=== PATIENT | male | born 1965 | race Caucasian/White ===

== ENCOUNTER 2018-11-05 18:25 | Emergency (ER) | payer BC ==
--- NOTE | 2018-11-05 18:48 | EDM.PDOC ---
ED HPI GENERAL MEDICAL PROBLEM - General Stated Complaint: CHF, SHORT OF BREATH Time Seen by Provider: 11/05/18 18:40 - History of Present Illness INITIAL COMMENTS - FREE TEXT/NARRATIVE: pt with Hx of COPD and CHF, comes in ambulatory with c/o SOB, tells me he feels bloated and need to get fluids off his lungs, pt feels SOB everytime he ly flat , states he was on lasix 20 but this was stopped by his PCP about 2 weeks ago, he was doing fine until today , he started feeling SOB, he took 2 tablets of his spironolactone 25 but still feels out of breath, pt denies cough, fever, chills, or any other associated sx or concerns. - Related Data Allergies Allergy/AdvReac Type Severity Reaction Status Date / Time No Known Allergies Allergy Verified 10/28/14 21:49 Home Meds: Home Meds Lisinopril [Zestril] 20 mg PO DAILY 04/09/14 [History] Spironolactone [Aldactone] 25 mg PO DAILY 04/09/14 [History] Albuterol [Ventolin HFA] 1 puff .XX ASDIRECTED 11/05/18 [History] Carvedilol 12.5 mg PO BID 11/05/18 [History] atorvaSTATin [Lipitor] 80 mg PO BEDTIME 11/05/18 [History] Social & Family History - Living Situation & Occupation Living situation: Reports: Single ED ROS GENERAL - Review of Systems Review Of Systems: See Below Constitutional: Denies: Fever, Chills, Fatigue HEENT: Reports: No Symptoms Respiratory: Reports: Shortness of Breath. Denies: Wheezing, Pleuritic Chest Pain, Cough, Hemoptysis Cardiovascular: Reports: No Symptoms. Denies: Chest Pain GI/Abdominal: Reports: No Symptoms, Distension Musculoskeletal: Reports: No Symptoms Skin: Reports: No Symptoms ED EXAM, GENERAL - Physical Exam Exam: See Below Exam Limited By: No Limitations General Appearance: Alert, Mild Distress Throat/Mouth: Normal Inspection Neck: Normal Inspection Respiratory/Chest: Rales Cardiovascular: Regular Rate, Rhythm, No Edema, No Murmur GI/Abdominal: Normal Bowel Sounds, Soft, Non-Tender, No Organomegaly, No Distention, No Abnormal Bruit, No Mass Neurological: Alert, Oriented, CN II-XII Intact Psychiatric: Normal Affect Course - Vital Signs Text/Narrative:: pt care will be handed to Dr Amin at time of shift change . labs and CXR are still pending. lasix 40 IM is being given. work-up diagnosis is dyspnea/ Chronic CHF. Departure - Departure Time of Disposition: 18:50 Disposition: DC/Tfer to Other 70 Clinical Impression: CHF (congestive heart failure) - Discharge Information Referrals: PCP,None [Primary Care Provider] -
[2018-11-05] MEDS ORDERED: Albuterol/Ipratropium 3.0-0.5 MG/3 ML Neb Soln NEB ONE (18:53)
[2018-11-05] MEDS ORDERED: Furosemide 40 MG/4 ML VIAL IM SCH (19:00)
[2018-11-05] MEDS: Furosemide 20 MG/2 ML VIAL ONE ×3 (19:55→20:23)
[2018-11-05] MEDS: Furosemide 40 MG/4 ML VIAL IM ONE ×2 (19:57→20:24)
[2018-11-05] MEDS ORDERED: Furosemide 40 MG/4 ML VIAL IVPUSH ONE (19:58)
[2018-11-05 20:21] VITALS: BP 174/104
--- NOTE | 2018-11-06 07:43 | ER ---
DATE SEEN: 11/05/2018 ADDENDUM: REASON FOR VISIT: Shortness of breath. This is a 53-year-old who was seen by Dr. Prajapati and was put on Lasix for CHF exacerbation. He feels much better already, and I was asked to see him for discharge. He complains of no chest pain. PAST MEDICAL HISTORY: Hypertension, COPD, tobacco abuse, CAD, CHF. PHYSICAL EXAMINATION: GENERAL: He is not in distress. VITAL SIGNS: His blood pressure has come down to 150s, pulse 115, temperature 97.9, and oxygenation 98%. ENT: Normal. NECK: No JVD noted. EXTREMITIES: Trace edema. CARDIOVASCULAR: Normal except tachycardia. RESPIRATORY SYSTEM: Rales in the lower bases. LABORATORY DATA: Labs revealed a white cell count of 12.8, proBNP of 7000, but normal troponin. Chest x-ray showed some mild CHF. IMPRESSION: Congestive heart failure exacerbation. PLAN: The patient was given 60 mg of Lasix total and some DuoNeb. He felt much better. He was discharged home to resume his medications, including the Lasix and Aldactone. He was advised to return to the ER with any worsening symptoms. /[id number] NICO/JAY
--- NOTE | 2018-11-06 10:35 | CR ---
INDICATION: Short of breath. CHEST: An AP portable upright view of the chest was obtained 11/05/18 and compared with 04/09/14 and 10/28/14. The heart is enlarged. The aorta is somewhat tortuous with calcifications suggested in the arch but not well seen. Upper lung field pulmonary vasculature is prominent, raising question of CHF. Interstitial markings are heavy, suggesting interstitial lung edema, although fibrosis could also be present. Also, infection of an interstitial type could also be present. Findings suggesting COPD are also seen. IMPRESSION: 1. ASHD, cardiomegaly, CHF with interstitial lung edema. 2. Probable COPD. 3. Difficult to exclude minimal patchy alveolar edema versus superimposed minimal patchy pneumonia. MTDD
== END 2018-11-05 20:10 | disposition home or self-care (01) ==
LOC: FB.ED 18:25
DX: I11.0 Hypertensive heart disease with heart failure (principal); I50.9 Heart failure, unspecified
CPT/HCPCS: 36415; 71045; 80053; 83880; 84484; 85025; 93005; 94640; 96372; 96374; 99285; J1940; J7620-GY

== ENCOUNTER 2019-11-30 13:00 | Emergency (ER) | payer BC, OTHER ==
[2019-11-30] MEDS ORDERED: Furosemide 40 MG/4 ML VIAL IM ONE (13:16)
--- NOTE | 2019-11-30 13:36 | EDM.PDOC ---
ED HPI GENERAL MEDICAL PROBLEM - General Chief Complaint: Cardiovascular Problem Stated Complaint: sob Time Seen by Provider: 11/30/19 13:05 Source of Information: Reports: Patient History Limitations: Reports: No Limitations - History of Present Illness INITIAL COMMENTS - FREE TEXT/NARRATIVE: Patient presented to the ED because of dyspnea for 1 week. There is no associated cough and cold,fever or chills. He has a history of CHF and he quit taking his lasix and lisinopril for 1 month now due to monetary reasons. - Related Data Allergies Allergy/AdvReac Type Severity Reaction Status Date / Time No Known Allergies Allergy Verified 11/30/19 13:17 Home Meds: Home Meds Lisinopril [Zestril] 20 mg PO DAILY 04/09/14 [History] Spironolactone [Aldactone] 25 mg PO DAILY 04/09/14 [History] Albuterol [Ventolin HFA] 1 - 2 puff .XX ASDIRECTED PRN 11/05/18 [History] atorvaSTATin [Lipitor] 80 mg PO BEDTIME 11/05/18 [History] carvediloL [Carvedilol] 12.5 mg PO BID 11/05/18 [History] Aspirin [Ecotrin EC] 325 mg PO DAILY 11/30/19 [History] Furosemide 40 mg DAILY 11/30/19 [History] Furosemide [Lasix] 40 mg PO DAILY #30 tablet 11/30/19 [Rx] Lisinopril [Zestril] 20 mg PO DAILY #30 tablet 11/30/19 [Rx] Past Medical History Cardiovascular History: Reports: Heart Failure, Hypertension Respiratory History: Reports: COPD Social & Family History - Family History Family Medical History: Noncontributory - Caffeine Use Caffeine Use: Reports: Coffee - Living Situation & Occupation Living situation: Reports: Single ED ROS GENERAL - Review of Systems Review Of Systems: See Below Constitutional: Reports: No Symptoms HEENT: Reports: No Symptoms Respiratory: Reports: Shortness of Breath Cardiovascular: Reports: No Symptoms, Edema, Orthopnea Endocrine: Reports: No Symptoms GI/Abdominal: Reports: No Symptoms : Reports: No Symptoms Musculoskeletal: Reports: No Symptoms ED EXAM, GENERAL - Physical Exam Exam: See Below Exam Limited By: No Limitations General Appearance: Alert, No Apparent Distress Ears: Normal External Exam, Normal Canal Nose: Normal Inspection, Normal Mucosa, No Blood Throat/Mouth: Normal Inspection, Normal Lips, Normal Teeth Head: Atraumatic, Normocephalic Neck: Normal Inspection, Supple, Non-Tender Respiratory/Chest: No Respiratory Distress, Normal Breath Sounds, Crackles Cardiovascular: Normal Peripheral Pulses, Regular Rate, Rhythm, No Edema GI/Abdominal: Normal Bowel Sounds, Soft, Non-Tender, No Organomegaly Back Exam: Normal Inspection, Full Range of Motion Extremities: Normal Inspection, Pedal Edema Course - Vital Signs Text/Narrative:: Labs/EKG/CXR was discussed with patient and verbalized ful understanding CXR-pulmonary vasc congestion consistent with CHF Trop-neg ProBNP more than 4K zaroxolyn 5 mg po x1 lasix 60 mg IM x1 Last Recorded V/S: Last Vital Signs Temp 36.7 C 11/30/19 13:00 Pulse 106 H 11/30/19 13:00 Resp 22 H 11/30/19 13:00 BP 112/52 L 11/30/19 13:00 Pulse Ox 98 11/30/19 13:00 - Orders/Labs/Meds Orders: Active Orders 24 hr Category Date Time Status EKG Documentation Completion [RC] ASDIRECTED Care 11/30/19 13:16 Active Chest 2V [CR] Stat Exams 11/30/19 13:15 Taken EKG 12 Lead [EK] Routine Ther 11/30/19 13:15 Ordered Labs: Laboratory Tests 11/30/19 11/30/19 11/30/19 Range/Units 13:12 13:12 13:12 WBC 8.1 (4.5-12.0) X10-3/uL RBC 5.10 (4.30-5.75) x10(6)uL Hgb 16.1 (13.5-17.8) g/dL Hct 47.1 (30.0-51.3) % MCV 92.4 (80-96) fL MCH 31.5 (27.7-33.6) pg MCHC 34.1 (32.2-35.4) g/dL RDW 13.4 (11.5-15.5) % Plt Count 290 (125-369) X10(3)uL MPV 8.8 (7.4-10.4) fL Neut % (Auto) 69.8 (46-82) % Lymph % (Auto) 14.2 (13-37) % [place] % (Auto) 9.7 (4-12) % Eos % (Auto) 4 (1.0-5.0) % Baso % (Auto) 2 (0-2) % Neut # (Auto) 5.7 (1.6-8.3) # Lymph # (Auto) 1.1 (0.6-5.0) # [place] # (Auto) 0.8 (0.0-1.3) # Eos # (Auto) 0.3 (0.0-0.8) # Baso # (Auto) 0.2 (0.0-0.2) # Sodium 141 (135-145) mmol/L Potassium 4.6 (3.5-5.3) mmol/L Chloride 105 (100-110) mmol/L Carbon Dioxide 24 (21-32) mmol/L BUN 21 H (7-18) mg/dL Creatinine 1.2 (0.70-1.30) mg/dL Est Cr Clr Drug Dosing 75.82 mL/min Estimated GFR (MDRD) > 60 (>60) BUN/Creatinine Ratio 17.5 (9-20) Glucose 129 H (80-116) mg/dL Calcium 8.9 (8.6-10.2) mg/dL Troponin I 54.8 (4.0-60.3) pg/mL NT-Pro-B Natriuret Pep 4550 H* (<=125) pg/mL Meds: Medications Discontinued Medications Generic Name Dose Route Start Last Admin Trade Name Freq PRN Reason Stop Dose Admin Furosemide 60 mg 11/30/19 13:16 11/30/19 13:43 Lasix IM 11/30/19 13:17 60 mg NOW ONE Administration Metolazone 5 mg 11/30/19 13:37 11/30/19 13:53 Zaroxolyn PO 11/30/19 13:38 5 mg ONETIME ONE Administration Departure - Departure Time of Disposition: 14:00 Disposition: Home, Self-Care 01 Condition: Good Clinical Impression: Congestive heart failure Prescriptions: Furosemide [Lasix] 40 mg PO DAILY #30 tablet Lisinopril [Zestril] 20 mg PO DAILY #30 tablet Instructions: Furosemide injection, Heart Failure, [id number], Metolazone tablets Referrals: PCP,None [Primary Care Provider] - Forms: ED Department Discharge Additional Instructions: Please read discharge instructions on congestive heart failure Never quit taking your medicines Take all your medicines as prescribed You have 3 refills on you lisinopril and furosemide Sepsis Event Note - Evaluation Sepsis Screening Result: No Definite Risk - Focused Exam Vital Signs: Vital Signs Temp Pulse Resp BP Pulse Ox 11/30/19 13:00 36.7 C 106 H 22 H 112/52 L 98 Date Exam was Performed: 11/30/19 Time Exam was Performed: 14:21 - My Orders Last 24 Hours: My Active Orders 11/30/19 13:15 Chest 2V [CR] Stat EKG 12 Lead [EK] Routine 11/30/19 13:16 EKG Documentation Completion [RC] ASDIRECTED - Assessment/Plan Last 24 Hours: My Active Orders 11/30/19 13:15 Chest 2V [CR] Stat EKG 12 Lead [EK] Routine 11/30/19 13:16 EKG Documentation Completion [RC] ASDIRECTED
[2019-11-30] MEDS ORDERED: Metolazone 5 MG Tab PO ONE (13:37)
[2019-11-30 14:26] VITALS: BP 107/83; PULSE 99
--- NOTE | 2019-12-01 10:37 | CR ---
INDICATION: Dyspnea. CHEST TWO VIEWS: PA and lateral views of the chest were obtained 11/30/19 and compared with 11/05/18 and 10/28/14. The heart is enlarged as previously. The aorta is tortuous with calcification in the arch. Heavy markings are noted at the lung bases and lower lung conway with blunting of the posterior sulci raising question of minimal pneumonia and pleuritis although fibrosis could also be present. Blunting of posterior sulci was also noted on previous study of 04/09/14. No gross consolidating pneumonia or large effusion was seen. Findings compatible with COPD are noted including flattening of diaphragm leaves , prominent AP diameter, and hyperaeration. Decreased anterior vertebral body volume is noted at a mid thoracic level compatible with an interval compression fracture compared with 04/09/14. Minimal prominence of upper lung field pulmonary vasculature is noted which could relate to very minimal early CHF. Also some of the interstitial changes seen could be on the basis of fibrosis and/or interstitial lung edema. IMPRESSION: 1. Heavy markings at the lung bases most likely fibrotic in nature, but making it difficult exclude patchy bronchopneumonia - additionally there is blunting of the right costophrenic angle and posterior sulcus raising question of minimal patchy pneumonia and pleuritis there versus fibrosis also. 2. COPD. 3. ASHD with cardiomegaly. 4. Decreased anterior vertebral body volume is noted at a mid thoracic level compatible with an interval compression fracture compared with 04/09/14. 5. Slightly prominent upper field pulmonary vasculature and interstitial markings may be on the basis of minimal early CHF and mild interstitial lung edema -correlate clinically. MTDD
== END 2019-11-30 14:15 | disposition home or self-care (01) ==
LOC: FB.ED 13:00
DX: I11.0 Hypertensive heart disease with heart failure (principal); I50.9 Heart failure, unspecified; J44.9 Chronic obstructive pulmonary disease, unspecified; Z79.82 Long term (current) use of aspirin; Z79.899 Other long term (current) drug therapy
CPT/HCPCS: 36415; 71046; 80048; 83880; 84484; 85025; 93005; 96372; 99284; 99285-25; A9270-GY; J1940

== ENCOUNTER 2020-10-16 14:19 | Emergency (ER) | payer SELFPAY ==
[2020-10-16] MEDS ORDERED: Furosemide 20 MG/2 ML VIAL IVPUSH ONE (15:18)
[2020-10-16] MEDS ORDERED: Metolazone 2.5 MG Tab PO ONE (15:24)
[2020-10-16] MEDS ORDERED: Azithromycin 500 MG Tab PO ONE (15:54)
[2020-10-16] MEDS ORDERED: methylPREDNISolone Sodium Succinate 125 MG/2 ML SDV IV ONE (15:55)
[2020-10-16] MEDS ORDERED: predniSONE 20 MG Tab PO ONE ×2 (15:56→16:02)
--- NOTE | 2020-10-16 15:58 | EDM.PDOC ---
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 sp) whom he saw at [facility] yesterday breakfast and room attendant refilled his furosemide and atorvastatin which he picked up at the pharmacy yesterday and told him to take furosemide 40 mg bid x 1 wk, then return to daily pt requested a shot for his sob which he says he typically gets once a year and breakfast and room attendant said that he would need to got to the ED to get a shot prior CxR was suggestive of COPD component as well, does smoke 1/2 ppd, has alb hfa which has not used recently and which does not help not had COVID, no fever, PO 97% here, lives alone will not have insurance for another week and requested that we not do labs or XR today, he did have labs drawn at [facility] yesterday, yet [facility] said that the blood is still at the clinic and they had not been run - Related Data Allergies Allergy/AdvReac Type Severity Reaction Status Date / Time No Known Allergies Allergy Verified 11/30/19 13:17 Home Meds: Home Meds Lisinopril [Zestril] 20 mg PO DAILY 04/09/14 [History] Spironolactone [Aldactone] 25 mg PO DAILY 04/09/14 [History] Albuterol [Ventolin HFA] 1 - 2 puff .XX ASDIRECTED PRN 11/05/18 [History] atorvaSTATin [Lipitor] 80 mg PO BEDTIME 11/05/18 [History] carvediloL [Carvedilol] 12.5 mg PO BID 11/05/18 [History] Aspirin [Ecotrin EC] 325 mg PO DAILY 11/30/19 [History] Furosemide 40 mg DAILY 11/30/19 [History] Furosemide [Lasix] 40 mg PO DAILY #30 tablet 11/30/19 [Rx] lisinopriL [Zestril] 20 mg PO DAILY #30 tablet 11/30/19 [Rx] Azithromycin 250 mg PO DAILY #4 tablet 10/16/20 [Rx] predniSONE [Prednisone] 20 mg PO DAILY #4 tablet 10/16/20 [Rx] Past Medical History Cardiovascular History: Reports: Heart Failure, Hypertension Other Cardiovascular History: 'leaky valve' Respiratory History: Reports: COPD Endocrine/Metabolic History: Reports: Obesity/BMI 30+ - Past Surgical History HEENT Surgical History: Reports: Myringotomy w Tube(s) Other HEENT Surgeries/Procedures: R ear tubes Cardiovascular Surgical History: Reports: None Social & Family History - Family History Family Medical History: No Pertinent Family History - Tobacco Use Tobacco Use Status *Q: Current Every Day Tobacco User Years of Tobacco use: 30 Packs/Tins Daily: 0.5 - Caffeine Use Caffeine Use: Reports: None - Alcohol Use Days Per Week of Alcohol Use: 2 Number of Drinks Per Day: 6 Total Drinks Per Week: 12 - Recreational Drug Use Recreational Drug Use: No - Living Situation & Occupation Living situation: Reports: Single ED ROS GENERAL - Review of Systems Review Of Systems: See Below Constitutional: Reports: No Symptoms. Denies: Fever, Chills, Malaise, Weakness HEENT: Reports: No Symptoms Respiratory: Reports: Shortness of Breath, Other (slept poorly last nite d/t sob, bunch when walking). Denies: Wheezing, Cough Cardiovascular: Reports: No Symptoms Endocrine: Reports: No Symptoms GI/Abdominal: Reports: No Symptoms : Reports: No Symptoms Musculoskeletal: Reports: No Symptoms Skin: Reports: No Symptoms Neurological: Reports: No Symptoms Psychiatric: Reports: No Symptoms Hematologic/Lymphatic: Reports: No Symptoms Immunologic: Reports: No Symptoms ED EXAM, GENERAL - Physical Exam Exam: See Below Exam Limited By: No Limitations General Appearance: Alert, WD/WN, Other (mild dyspnea) Nose: Normal Inspection Throat/Mouth: Normal Voice, No Airway Compromise Head: Atraumatic, Normocephalic Neck: Normal Inspection, Supple, Non-Tender, Full Range of Motion. No: Lymphadenopathy (R), Lymphadenopathy (L) Respiratory/Chest: Other (no dull at base, fair AE, talks 8-word sentences, uses accessory msls on occasion, no retraction, no purse lips, no inc'd exp phase, no cough) Cardiovascular: Regular Rate, Rhythm, No Edema, No Gallop, No Rub, Other (2/6 CLARITZA at base, 2/6 CLARITZA at axilla c/w MR, borderline tachy at 96, no edema, turgor wnl) GI/Abdominal: Soft, Non-Tender, No Organomegaly, No Distention Back Exam: Normal Inspection, Full Range of Motion Extremities: Normal Inspection, Non-Tender, No Pedal Edema Neurological: Alert, Oriented, CN II-XII Intact, Normal Cognition, Normal Gait, No Motor/Sensory Deficits Psychiatric: Normal Affect, Normal Mood Skin Exam: Warm, Dry, Intact, Normal Color, No Rash Lymphatic: No Adenopathy Course - Vital Signs Last Recorded V/S: Last Vital Signs Temp 36.5 C 10/16/20 14:53 Pulse 65 10/16/20 14:53 Resp 18 10/16/20 14:53 BP 98/70 10/16/20 14:53 Pulse Ox 97 10/16/20 14:53 - Orders/Labs/Meds Meds: Medications Discontinued Medications Generic Name Dose Route Start Last Admin Trade Name Cindy PRN Reason Stop Dose Admin Furosemide 40 mg 10/16/20 15:18 10/16/20 15:27 Lasix IVPUSH 10/16/20 15:19 40 mg ONETIME ONE Administration Metolazone 2.5 mg 10/16/20 15:24 10/16/20 15:52 Zaroxolyn PO 10/16/20 15:25 2.5 mg ONETIME ONE Administration - Re-Assessments/Exams Free Text/Narrative Re-Assessment/Exam: 10/16/20 16:25 pt with possible COPD exacerbation in addition to HF exacerbation given 2 IV meds: Solu-Medrol 125 mg and furosemide 40 mg given 2 po meds: Zaroxlyn 2.5 mg as one time dose and azitho 500 mg as tomorrow is Sunday he was given one tab of furosemide 20 mg to take tomorrow then will have him continue with furosemide 20 mg daily and pred 20 mg daily for 4 days Departure - Departure Time of Disposition: 15:53 Disposition: Home, Self-Care 01 Condition: Good Clinical Impression: Acute exacerbation of congestive heart failure - Discharge Information *PRESCRIPTION DRUG MONITORING PROGRAM REVIEWED*: Not Applicable *COPY OF PRESCRIPTION DRUG MONITORING REPORT IN PATIENT GUIDO: Not Applicable Prescriptions: Azithromycin 250 mg PO DAILY #4 tablet predniSONE [Prednisone] 20 mg PO DAILY #4 tablet Instructions: Heart Failure Exacerbation, Living With Heart Failure Referrals: PCP,None [Primary Care Provider] - Forms: ED Department Discharge, ED Return to Work/School Form Additional Instructions: Continue current meds including the furosemide 40 mg 1 tab 2 times a day for one week, then 1 tab daily, as you discussed with your breakfast and room attendant. To keep airways open, take prednisone 20 mg 1 tab in the morning (given to you in the Emergency Department) and an additional 1 tab a day for 4 days. For possible infection, take azithromycin 250 mg 1 tab daily for 4 days. May work tomorrow if feeling better. However, rest tomorrow if necessary. Your oxygen level is quite good here. However, return to the Emergency Department if you are feeling worse despite the medications. Otherwise, talk to your doctor in 3-4 days regarding your blood test results. Sepsis Event Note (ED) - Evaluation Sepsis Screening Result: No Definite Risk - Focused Exam Vital Signs: Vital Signs Temp Pulse Resp BP Pulse Ox 10/16/20 14:53 36.5 C 65 18 98/70 97
[2020-10-16 16:26] VITALS: BP 115/72; PULSE 84
== END 2020-10-16 16:21 | disposition home or self-care (01) ==
LOC: FB.ED 14:19
DX: I11.0 Hypertensive heart disease with heart failure (principal); I50.9 Heart failure, unspecified; J44.9 Chronic obstructive pulmonary disease, unspecified; F17.200 Nicotine dependence, unspecified, uncomplicated; E66.9 Obesity, unspecified; Z68.29 Body mass index [BMI] 29.0-29.9, adult; Z79.82 Long term (current) use of aspirin; Z79.899 Other long term (current) drug therapy
CPT/HCPCS: 96374; 96375; 99284; A9270; J1940; J2930; J7512

== ENCOUNTER 2022-08-07 22:30 | Observation (INO) | payer MEDICAID ==
[2022-08-07] MEDS: Sodium Chloride 0.9% 10 ML Syringe FLUSH PRN (22:54)
[2022-08-07] MEDS ORDERED: Furosemide 40 MG/4 ML VIAL IVPUSH ONE ×2 (23:00→23:54)
[2022-08-07 23:23] LABS: ESTIMATED GFR 54 mL/min (>60)
[2022-08-07] MEDS ORDERED: Albuterol/Ipratropium 3.0-0.5 MG/3 ML Neb Soln INH PRN (23:54)
[2022-08-08] MEDS ORDERED: Sodium Chloride 0.9% 1,000 ML IV ONE (01:34)
[2022-08-08] MEDS ORDERED: methylPREDNISolone Sodium Succinate 125 MG/2 ML SDV IVPUSH SCH ×2 (01:45→09:01)
[2022-08-08] MEDS ORDERED: Melatonin 3 MG Tab PO ONE (02:13)
[2022-08-08 06:59] LABS: ESTIMATED GFR 47 mL/min (>60)
[2022-08-08] MEDS: Carvedilol 12.5 MG Tab PO SCH ×2 (11:47→21:18)
[2022-08-08] MEDS ORDERED: Albuterol/Ipratropium 3.0-0.5 MG/3 ML Neb Soln INH PRN (12:00)
[2022-08-08] MEDS ORDERED: Tamsulosin 0.4 MG Cap.ER PO SCH (18:00)
[2022-08-08] MEDS: Tamsulosin 0.4 MG Cap.ER PO SCH (18:26)
[2022-08-08] MEDS: traZODone 50 MG Tab PO SCH ×2 (18:30→20:31)
[2022-08-08] MEDS: atorvaSTATin 40 MG Tab PO SCH (21:18)
[2022-08-09] MEDS ORDERED: Acetaminophen/oxyCODONE 325-5 MG Tab ONE (02:40)
[2022-08-09 07:15] LABS: ESTIMATED GFR 47 mL/min (>60)
[2022-08-09] MEDS ORDERED: Acetaminophen/oxyCODONE 325-5 MG Tab PO PRN (08:23)
[2022-08-09] MEDS ORDERED: Ampicillin/Sulbactam Na 3 GM in Sodium Chloride 0.9% 100 ML IV SCH (08:30)
[2022-08-09] MEDS ORDERED: Sodium Chloride 0.9% 1,000 ML IV SCH (08:30)
[2022-08-09] MEDS: Sodium Chloride 0.9% 10 ML Syringe FLUSH PRN ×4 (08:57→22:30)
[2022-08-09] MEDS ORDERED: Lisinopril 10 MG Tab PO SCH (09:00)
[2022-08-09] MEDS: Ampicillin/Sulbactam Na 3 GM in Sodium Chloride 0.9% 100 ML IV SCH ×3 (09:13→22:03)
[2022-08-09] MEDS: Aspirin 325 MG Tab.EC PO SCH (13:39)
[2022-08-09] MEDS: Bumetanide 1 MG Tab PO SCH (13:39)
[2022-08-09] MEDS: Spironolactone 25 MG Tab PO SCH (13:40)
[2022-08-09] MEDS: Carvedilol 12.5 MG Tab PO SCH ×2 (13:46→22:01)
[2022-08-09] MEDS: Lisinopril 2.5 MG Tab PO SCH (13:56)
[2022-08-09] MEDS ORDERED: busPIRone 5 MG Tab PO SCH (14:22)
[2022-08-09] MEDS ORDERED: LORazepam 0.5 MG Tab PO PRN (16:38)
[2022-08-09] MEDS ORDERED: Bumetanide 1 MG/4 ML MDV IVPUSH ONE (17:03)
[2022-08-09] MEDS: Tamsulosin 0.4 MG Cap.ER PO SCH (17:30)
[2022-08-09] MEDS: Acetaminophen/oxyCODONE 325-5 MG Tab PO PRN ×2 (18:11→23:46)
[2022-08-09] MEDS: atorvaSTATin 40 MG Tab PO SCH (22:02)
[2022-08-09] MEDS: traZODone 50 MG Tab PO SCH (22:03)
[2022-08-10] MEDS: Ampicillin/Sulbactam Na 3 GM in Sodium Chloride 0.9% 100 ML IV SCH ×2 (03:42→09:12)
[2022-08-10] MEDS: Sodium Chloride 0.9% 10 ML Syringe FLUSH PRN ×3 (05:00→10:25)
[2022-08-10 06:54] LABS: ESTIMATED GFR 44 mL/min (>60)
[2022-08-10] MEDS: Bumetanide 1 MG Tab PO SCH (09:08)
[2022-08-10] MEDS: Aspirin 325 MG Tab.EC PO SCH (09:09)
[2022-08-10] MEDS: Spironolactone 25 MG Tab PO SCH (09:09)
[2022-08-10] MEDS: Carvedilol 12.5 MG Tab PO SCH (09:19)
[2022-08-10 09:20] VITALS: BP 88/63; PULSE 84
[2022-08-10] MEDS: Lisinopril 2.5 MG Tab PO SCH (09:22)
== END 2022-08-10 12:10 ==
LOC: FB.ED 22:30 → FB.MS 23:54
PROVIDERS: ADMIT Family Medicine; ATTEND Family Medicine
DX: K81.9 Cholecystitis, unspecified (principal); R79.89 Other specified abnormal findings of blood chemistry; I11.0 Hypertensive heart disease with heart failure; I50.43 Acute on chronic combined systolic (congestive) and diastolic (congestive) heart failure; I48.91 Unspecified atrial fibrillation; R77.8 Other specified abnormalities of plasma proteins; N40.1 Benign prostatic hyperplasia with lower urinary tract symptoms; R33.8 Other retention of urine; I42.0 Dilated cardiomyopathy; E66.9 Obesity, unspecified; F17.210 Nicotine dependence, cigarettes, uncomplicated; J44.9 Chronic obstructive pulmonary disease, unspecified; I08.8 Other rheumatic multiple valve diseases; I49.3 Ventricular premature depolarization; Z68.31 Body mass index [BMI] 31.0-31.9, adult; Z79.899 Other long term (current) drug therapy; Z79.82 Long term (current) use of aspirin; Z98.890 Other specified postprocedural states
CPT/HCPCS: 36415; 71045; 71250; 74176; 76705; 80048; 80053; 82150; 83605; 83690; 83880; 84484; 85025; 86140; 93005; 93306; A9270-GY; J0295; J1940; J2930; J3490; J7030; J7620